=== PATIENT | male | born 1975 | race African-American/Black ===

== ENCOUNTER → 2016-08-09 | Outpatient (REF) | payer OTHER ==
[~2016-08-09] MED LIST: FLUO20CA9 PO; MUPI2OI TOP; TRAZ10TA PO
== END | disposition home or self-care (01) ==
LOC: M LAB REF 16:40
PROVIDERS: ATTEND Internal Medicine Medical Oncology
DX: I26.99 Other pulmonary embolism without acute cor pulmonale (principal)

== ENCOUNTER 2016-08-21 13:29 | Emergency (ER) | payer OTHER ==
[2016-08-21] MEDS ORDERED: ACETAMINOPHEN 325 MG TAB As Ordered ONE (14:27)
--- NOTE | 2016-08-21 15:51 | EDDOCDS ---
Nurse's Notes [facility] Name: John Ferrer Age: 41 yrs Sex: Male : 1975 Arrival Date: 08/21/2016 Time: 13:29 Bed PR2 / Private MD: RANDOLPH Dick Diagnosis: Acute upper respiratory infection, unspecified Presentation: 08/21 13:33 Presenting complaint: Patient states: body aches, chills, headache, sore throat, and kc3 cough x 2 days. Adult Sepsis Screening: The patient does not have new or worsening altered mentation. Patient's respiratory rate is less than 22. Systolic blood pressure is greater than 100. Patient has a qSOFA score of 0- Negative Sepsis Screen. Suicide/Homicide risk assessment- the patient denies having any suicidal and/or homicidal ideations and does not present with any other emotional, behavioral or mental health complaints. 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 Transition of care: patient was not received from another setting of care. 13:33 Acuity: SARAH Level 4 kc3 13:33 Method Of Arrival: Walkin/Carried/Asstd kc3 Triage Assessment: 13:36 General: Appears in no apparent distress, comfortable, Behavior is appropriate for age, kc3 cooperative. Pain: Location: head Pain currently is 10 out of 10 on a pain scale. HIV screening NA for this visit Offered previously. Respiratory: Respiratory effort is even, unlabored, Reports cough that is non-productive. Historical: - Allergies: no known allergies; - Home Meds: 1. Xarelto 20 mg oral tab once daily 2. Prozac 20 mg oral cap once daily 3. Wellbutrin 100 mg Oral tab daily - PMHx: DVT; Depression; - PSHx: none; - Social history: Smoking status: Patient states was never smoker of tobacco. No barriers to communication noted, The patient speaks fluent Panamanian, Speaks appropriately for age. - Family history: Not pertinent. - : The pt / caregiver states he / she is on anticoagulants: Xarelto Home medication list is obtained from the patient. - Exposure Risk Screening:: None identified. Screenin:29 Screening information is obtained from the patient. Fall risk: No risks identified. ms18 Assistance ADL's: requires no assistance with activities of daily living. Abuse/DV Screen: The patient / caregiver reports he/she is: not in a situation that causes fear, pain or injury. Nutritional screening: No deficits noted. Advance Directives: Currently, there is no health care proxy. home support is adequate. Assessment: 15:28 General: Appears in no apparent distress, Behavior is appropriate for age, cooperative. ms18 Pain: Location: head Pain currently is 7 out of 10 on a pain scale. Neurological: Level of Consciousness is awake, alert. Respiratory: Airway is patent Respiratory effort is even, unlabored, Breath sounds are clear bilaterally. Derm: No deficits noted. Vital Signs: 13:30 BP 167 / 96; Pulse 115; Resp 20; Temp 102.3(O); Pulse Ox 96% on R/A; Weight 113.4 kg lr2 (R); Height 6 ft. 4 in. (193.04 cm) (R); Pain 5/10; 15:28 BP 139 / 90; Pulse 108; Resp 16; Temp 99.2(TE); Pulse Ox 94% on R/A; ms18 13:30 Body Mass Index 30.43 (113.40 kg, 193.04 cm) lr2 Vitals: 13:30 Log In Time: August 21, 2016 at 13:29. lr2 ED Course: 13:30 Patient visited by Raysa Mcmillan. lr2 13:30 Patient moved to Waiting lr2 13:[address] [facility] is Private Physician. lr2 13:32 Patient moved to Pre RCE lr2 13:34 Triage Initiated kc3 13:37 Patient moved to Triage 3 kc3 13:49 [facility] dk1 13:49 Rohan Moran MD is Attending Physician. dk1 14:01 Patient visited by Manuel Pretty PA-C. dk1 14:24 Patient moved to PR2 / 26 mlb1 14:32 -Influenza A&B Rapid Antigen - Nose Sent. kc3 15:01 Patient visited by Lucrecia Stoddard RN. ms18 15:06 [facility] Payment Agreement was scanned into [employer] and attached to record. lg 15:29 The patient / caregiver is instructed regarding the plan of care and ED course. ms18 15:29 No IV's were initiated during this patient's visit. No procedures done that require ms18 assistance. 15:40 [place] Sanches [facility] is Referral Physician. dk1 15:50 Patient visited by Rahul Varma, RN. mlb1 Administered Medications: 14:32 Drug: Acetaminophen 975 mg [acetaminophen 325 mg tablet (3 tabs)] Route: PO; kc3 Order Results: Lab Order: -Influenza A&B Rapid Antigen - Nose; SPEC'M 08/21/16 14:30 Test: INFLUENZA A RAPID SCR by ICA; Value: INFLUENZA A RESULTS NEGATIVE; Status: F Test: INFLUENZA A RAPID SCR by ICA; Value: Comments:; Status: F Test: INFLUENZA B RAPID SCR by ICA; Value: INFLUENZA B RESULTS NEGATIVE; Status: F Test Note: ; The Influenza test is a direct rapid immunoassay for the qualitative detection of Influenza viral antigen. Cell culture (Viral Culture) testing should be considered to confirm NEGATIVE results and to assist in detecting other viruses that can provide similar clinical symptoms. Please contact the lab within 24 hours ([phone]) if confirmatory testing is desired. Outcome: 15:40 Discharge ordered by Provider. dk1 15:50 Discharge Assessment: Patient awake, alert and oriented x 3. No cognitive and/or mlb1 functional deficits noted. Patient verbalized understanding of disposition instructions. patient administered narcotics - no. The following High Risk Discharge criteria are identified: None. Discharged to home ambulatory. Condition: good. Discharge instructions given to patient, Instructed on discharge instructions, follow up and referral plans. medication usage, Demonstrated understanding of instructions, medications, Pt was receptive of discharge instructions/ teaching. Prescriptions given X 3. No special radiology studies were completed. Property sent home with patient. 15:50 Patient left the ED. mlb1 Signatures: Kam Norris Reg Reg lg Rahul Varma, RN RN mlb1 Manuel Pretty PA-C PA-C dk1 Lucrecia Stoddard RN RN ms18 Donna Taveras,SHIRLENE RN kc3 Raysa Mcmillan2 MTDD
--- NOTE | 2016-08-21 15:51 | EDDOCDS ---
Physician Documentation [facility] Name: John Ferrer Age: 41 yrs Sex: Male : 1975 Arrival Date: 08/21/2016 Time: 13:29 Bed PR Private MD: Kapil [facility] Disposition: 08/21/16 15:40 Discharged to Home/Self Care. Impression: Acute upper respiratory infection, unspecified. - Condition is Stable. - Discharge Instructions: Upper Respiratory Infection, Adult. - Prescriptions for Tylenol 325 mg Oral Tablet - take 2 tablet by ORAL route every 6 hours as needed; 1 bottle. Mucinex 600 mg - take 1 tablet by ORAL route 2 times per day; 30 tablet. benzonatate 200 mg Oral Capsule - take 1 capsule by ORAL route 3 times per day As needed; 30 capsule. - Medication Reconciliation, Local Pharmacy Hours form. - Follow up: Dayton Sanches [facility]; When: 2 - 3 days; Reason: Continuance of care. Follow up: Emergency Department; When: As needed; Reason: Worsening of conditions. - Problem is new. - Symptoms have improved. Historical: - Allergies: no known allergies; - Home Meds: 1. Xarelto 20 mg oral tab once daily 2. Prozac 20 mg oral cap once daily 3. Wellbutrin 100 mg Oral tab daily - PMHx: DVT; Depression; - PSHx: none; - Social history: Smoking status: Patient states was never smoker of tobacco. No barriers to communication noted, The patient speaks fluent Setswana, Speaks appropriately for age. - Family history: Not pertinent. - : The pt / caregiver states he / she is on anticoagulants: Xarelto Home medication list is obtained from the patient. - Exposure Risk Screening:: None identified. Vital Signs: 08/21 13:30 BP 167 / 96; Pulse 115; Resp 20; Temp 102.3(O); Pulse Ox 96% on R/A; Weight 113.4 kg / lr2 250 lbs (R); Height 6 ft. 4 in. (193.04 cm) (R); Pain 5/10; 15:28 BP 139 / 90; Pulse 108; Resp 16; Temp 99.2(TE); Pulse Ox 94% on R/A; ms18 13:30 Body Mass Index 30.43 (113.40 kg, 193.04 cm) lr2 MDM: 14:09 Financial registration complete. lg 14:22 Acetaminophen Tablet 975 mg PO once ordered. dk1 14:22 Obtain sample by nasopharyngeal swab ordered. dk1 14:23 -Influenza A&B Rapid Antigen - Nose Ordered. EDMS 15:06 [facility] Payment Agreement was scanned into [employer]u and attached to record. lg 15:14 -Influenza A&B Rapid Antigen - Nose Reviewed. dk1 15:17 Recheck Vital Signs, perform reassessment and enter into MedHost ordered. dk1 Administered Medications: 14:32 Drug: Acetaminophen 975 mg [acetaminophen 325 mg tablet (3 tabs)] Route: PO; kc3 Signatures: Dispatcher MedHost EDMS Kam Norris, Armond Reg lg Rahul Varma RN RN mlb1 Manuel Pretty, PA-C PA-C dk1 Lucrecia Stoddard RN RN ms18 Donna TaverasRN RN kc3 The chart was reviewed and I authenticate all verbal orders and agree with the evaluation and treatment provided.Attachments: 15:06 [facility] Payment Agreement lg MTDD
--- NOTE | 2016-08-23 16:52 | EDDOCDS ---
Physician Documentation [facility] Name: John Ferrer Age: 41 yrs Sex: Male : 1975 Arrival Date: 08/21/2016 Time: 13:29 Bed PR Private MD: Kapil [facility] Disposition: 08/21/16 15:40 Discharged to Home/Self Care. Impression: Acute upper respiratory infection, unspecified. - Condition is Stable. - Discharge Instructions: Upper Respiratory Infection, Adult. - Prescriptions for Tylenol 325 mg Oral Tablet - take 2 tablet by ORAL route every 6 hours as needed; 1 bottle. Mucinex 600 mg - take 1 tablet by ORAL route 2 times per day; 30 tablet. benzonatate 200 mg Oral Capsule - take 1 capsule by ORAL route 3 times per day As needed; 30 capsule. - Medication Reconciliation, Local Pharmacy Hours form. - Follow up: [place] Sanches [facility]; When: 2 - 3 days; Reason: Continuance of care. Follow up: Emergency Department; When: As needed; Reason: Worsening of conditions. - Problem is new. - Symptoms have improved. Historical: - Allergies: no known allergies; - Home Meds: 1. Xarelto 20 mg oral tab once daily 2. Prozac 20 mg oral cap once daily 3. Wellbutrin 100 mg Oral tab daily - PMHx: DVT; Depression; - PSHx: none; - Social history: Smoking status: Patient states was never smoker of tobacco. No barriers to communication noted, The patient speaks fluent Belarusian, Speaks appropriately for age. - Family history: Not pertinent. - : The pt / caregiver states he / she is on anticoagulants: Xarelto Home medication list is obtained from the patient. - Exposure Risk Screening:: None identified. Vital Signs: 08/21 13:30 BP 167 / 96; Pulse 115; Resp 20; Temp 102.3(O); Pulse Ox 96% on R/A; Weight 113.4 kg / lr2 250 lbs (R); Height 6 ft. 4 in. (193.04 cm) (R); Pain 5/10; 15:28 BP 139 / 90; Pulse 108; Resp 16; Temp 99.2(TE); Pulse Ox 94% on R/A; ms18 13:30 Body Mass Index 30.43 (113.40 kg, 193.04 cm) lr2 MDM: 14:09 Financial registration complete. lg 14:22 Acetaminophen Tablet 975 mg PO once ordered. dk1 14:22 Obtain sample by nasopharyngeal swab ordered. dk1 14:23 -Influenza A&B Rapid Antigen - Nose Ordered. EDTN 15:06 [facility] Payment Agreement was scanned into [employer] and attached to record. lg 15:14 -Influenza A&B Rapid Antigen - Nose Reviewed. dk1 15:17 Recheck Vital Signs, perform reassessment and enter into MedHost ordered. dk1 08/22 08:54 T-Sheet-- Draft Copy was scanned into [employer] and attached to record. [facility] Administered Medications: 08/21 14:32 Drug: Acetaminophen 975 mg [acetaminophen 325 mg tablet (3 tabs)] Route: PO; kc3 Signatures: Dispatcher MedHost EDTN Kam Norris, Armond Reg lg Rahul Varma RN RN mlb1 aMnuel Pretty PA-C PAHanh dk1 Lucrecia Stoddard RN RN ms18 Donna Taveras RN RN kc3 Lorin Cosby [facility] The chart was reviewed and I authenticate all verbal orders and agree with the evaluation and treatment provided.Attachments: 15:06 [facility] Payment Agreement lg 08/22 08:54 T-Sheet-- Draft Copy [facility] Chart Complete MTDD
--- NOTE | 2016-08-23 16:52 | EDDOCDS ---
Nurse's Notes [facility] Name: John Ferrer Age: 41 yrs Sex: Male : 1975 Arrival Date: 08/21/2016 Time: 13:29 Bed PR2 / Private MD: RANDOLPH Dick Diagnosis: Acute upper respiratory infection, unspecified Presentation: 08/21 13:33 Presenting complaint: Patient states: body aches, chills, headache, sore throat, and kc3 cough x 2 days. Adult Sepsis Screening: The patient does not have new or worsening altered mentation. Patient's respiratory rate is less than 22. Systolic blood pressure is greater than 100. Patient has a qSOFA score of 0- Negative Sepsis Screen. Suicide/Homicide risk assessment- the patient denies having any suicidal and/or homicidal ideations and does not present with any other emotional, behavioral or mental health complaints. 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 Transition of care: patient was not received from another setting of care. 13:33 Acuity: SARAH Level 4 kc3 13:33 Method Of Arrival: Walkin/Carried/Asstd kc3 Triage Assessment: 13:36 General: Appears in no apparent distress, comfortable, Behavior is appropriate for age, kc3 cooperative. Pain: Location: head Pain currently is 10 out of 10 on a pain scale. HIV screening NA for this visit Offered previously. Respiratory: Respiratory effort is even, unlabored, Reports cough that is non-productive. Historical: - Allergies: no known allergies; - Home Meds: 1. Xarelto 20 mg oral tab once daily 2. Prozac 20 mg oral cap once daily 3. Wellbutrin 100 mg Oral tab daily - PMHx: DVT; Depression; - PSHx: none; - Social history: Smoking status: Patient states was never smoker of tobacco. No barriers to communication noted, The patient speaks fluent Guyanese, Speaks appropriately for age. - Family history: Not pertinent. - : The pt / caregiver states he / she is on anticoagulants: Xarelto Home medication list is obtained from the patient. - Exposure Risk Screening:: None identified. Screenin:29 Screening information is obtained from the patient. Fall risk: No risks identified. ms18 Assistance ADL's: requires no assistance with activities of daily living. Abuse/DV Screen: The patient / caregiver reports he/she is: not in a situation that causes fear, pain or injury. Nutritional screening: No deficits noted. Advance Directives: Currently, there is no health care proxy. home support is adequate. Assessment: 15:28 General: Appears in no apparent distress, Behavior is appropriate for age, cooperative. ms18 Pain: Location: head Pain currently is 7 out of 10 on a pain scale. Neurological: Level of Consciousness is awake, alert. Respiratory: Airway is patent Respiratory effort is even, unlabored, Breath sounds are clear bilaterally. Derm: No deficits noted. Vital Signs: 13:30 BP 167 / 96; Pulse 115; Resp 20; Temp 102.3(O); Pulse Ox 96% on R/A; Weight 113.4 kg lr2 (R); Height 6 ft. 4 in. (193.04 cm) (R); Pain 5/10; 15:28 BP 139 / 90; Pulse 108; Resp 16; Temp 99.2(TE); Pulse Ox 94% on R/A; ms18 13:30 Body Mass Index 30.43 (113.40 kg, 193.04 cm) lr2 Vitals: 13:30 Log In Time: August 21, 2016 at 13:29. lr2 ED Course: 13:30 Patient visited by Raysa Mcmillan. lr2 13:30 Patient moved to Waiting lr2 13:32 Kapil [facility] [place] [place] is Private Physician. lr2 13:32 Patient moved to Pre RCE lr2 13:34 Triage Initiated kc3 13:37 Patient moved to Triage 3 kc3 13:49 [facility]. dk1 13:49 Rohan Moran MD is Attending Physician. dk1 14:01 Patient visited by Manuel Pretty PA-C. dk1 14:24 Patient moved to PR2 / 26 mlb1 14:32 -Influenza A&B Rapid Antigen - Nose Sent. kc3 15:01 Patient visited by Lucrecia Stoddard RN. ms18 15:06 [facility] Payment Agreement was scanned into [employer] and attached to record. lg 15:29 The patient / caregiver is instructed regarding the plan of care and ED course. ms18 15:29 No IV's were initiated during this patient's visit. No procedures done that require ms18 assistance. 15:40 [place] Sanches [facility] is Referral Physician. dk1 15:50 Patient visited by Rahul Varma, RN. mlb1 08/22 08:54 T-Sheet-- Draft Copy was scanned into [employer] and attached to record. [facility] Administered Medications: 08/21 14:32 Drug: Acetaminophen 975 mg [acetaminophen 325 mg tablet (3 tabs)] Route: PO; kc3 Order Results: Lab Order: -Influenza A&B Rapid Antigen - Nose; SPEC'M 08/21/16 14:30 Test: INFLUENZA A RAPID SCR by ICA; Value: INFLUENZA A RESULTS NEGATIVE; Status: F Test: INFLUENZA A RAPID SCR by ICA; Value: Comments:; Status: F Test: INFLUENZA B RAPID SCR by ICA; Value: INFLUENZA B RESULTS NEGATIVE; Status: F Test Note: ; The Influenza test is a direct rapid immunoassay for the qualitative detection of Influenza viral antigen. Cell culture (Viral Culture) testing should be considered to confirm NEGATIVE results and to assist in detecting other viruses that can provide similar clinical symptoms. Please contact the lab within 24 hours ([phone]) if confirmatory testing is desired. Outcome: 15:40 Discharge ordered by Provider. dk1 15:50 Discharge Assessment: Patient awake, alert and oriented x 3. No cognitive and/or mlb1 functional deficits noted. Patient verbalized understanding of disposition instructions. patient administered narcotics - no. The following High Risk Discharge criteria are identified: None. Discharged to home ambulatory. Condition: good. Discharge instructions given to patient, Instructed on discharge instructions, follow up and referral plans. medication usage, Demonstrated understanding of instructions, medications, Pt was receptive of discharge instructions/ teaching. Prescriptions given X 3. No special radiology studies were completed. Property sent home with patient. 15:50 Patient left the ED. mlb1 Signatures: Kam Norris, Armond Reg lg Rahul Varma, RN RN mlb1 Manuel Pretty PA-C PAHanh dk1 Lucrecia Stoddard RN RN ms18 Donna Taveras RN RN kc3 Harjeet, Raysa Landry Chart Complete MTDD
--- NOTE | 2016-08-23 16:52 | EDDOCDS ---
Physician Documentation [facility] Name: John Ferrer Age: 41 yrs Sex: Male : 1975 Arrival Date: 08/21/2016 Time: 13:29 Bed PR Private MD: Kapil [facility] Disposition: 08/21/16 15:40 Discharged to Home/Self Care. Impression: Acute upper respiratory infection, unspecified. - Condition is Stable. - Discharge Instructions: Upper Respiratory Infection, Adult. - Prescriptions for Tylenol 325 mg Oral Tablet - take 2 tablet by ORAL route every 6 hours as needed; 1 bottle. Mucinex 600 mg - take 1 tablet by ORAL route 2 times per day; 30 tablet. benzonatate 200 mg Oral Capsule - take 1 capsule by ORAL route 3 times per day As needed; 30 capsule. - Medication Reconciliation, Local Pharmacy Hours form. - Follow up: [place] Sanches [facility]; When: 2 - 3 days; Reason: Continuance of care. Follow up: Emergency Department; When: As needed; Reason: Worsening of conditions. - Problem is new. - Symptoms have improved. Historical: - Allergies: no known allergies; - Home Meds: 1. Xarelto 20 mg oral tab once daily 2. Prozac 20 mg oral cap once daily 3. Wellbutrin 100 mg Oral tab daily - PMHx: DVT; Depression; - PSHx: none; - Social history: Smoking status: Patient states was never smoker of tobacco. No barriers to communication noted, The patient speaks fluent Kazakh, Speaks appropriately for age. - Family history: Not pertinent. - : The pt / caregiver states he / she is on anticoagulants: Xarelto Home medication list is obtained from the patient. - Exposure Risk Screening:: None identified. Vital Signs: 08/21 13:30 BP 167 / 96; Pulse 115; Resp 20; Temp 102.3(O); Pulse Ox 96% on R/A; Weight 113.4 kg / lr2 250 lbs (R); Height 6 ft. 4 in. (193.04 cm) (R); Pain 5/10; 15:28 BP 139 / 90; Pulse 108; Resp 16; Temp 99.2(TE); Pulse Ox 94% on R/A; ms18 13:30 Body Mass Index 30.43 (113.40 kg, 193.04 cm) lr2 MDM: 14:09 Financial registration complete. lg 14:22 Acetaminophen Tablet 975 mg PO once ordered. dk1 14:22 Obtain sample by nasopharyngeal swab ordered. dk1 14:23 -Influenza A&B Rapid Antigen - Nose Ordered. EDID 15:06 [facility] Payment Agreement was scanned into [employer] and attached to record. lg 15:14 -Influenza A&B Rapid Antigen - Nose Reviewed. dk1 15:17 Recheck Vital Signs, perform reassessment and enter into MedHost ordered. dk1 08/22 08:54 T-Sheet-- Draft Copy was scanned into [employer] and attached to record. [facility] Administered Medications: 08/21 14:32 Drug: Acetaminophen 975 mg [acetaminophen 325 mg tablet (3 tabs)] Route: PO; kc3 Signatures: Dispatcher MedHost EDID Kam Norris, Armond Reg lg Rahul Varma RN RN mlb1 Manuel Pretty PA-C PAHanh dk1 Lucrecia Stoddard RN RN ms18 Donna Taveras RN RN kc3 Lorin Cosby [facility] The chart was reviewed and I authenticate all verbal orders and agree with the evaluation and treatment provided.Attachments: 15:06 [facility] Payment Agreement lg 08/22 08:54 T-Sheet-- Draft Copy [facility] Chart Complete MTDD
== END 2016-08-21 15:50 | disposition home or self-care (01) ==
LOC: M ED 13:29
DX: J06.9 Acute upper respiratory infection, unspecified (principal); I82.90 Acute embolism and thrombosis of unspecified vein; F32.9 Major depressive disorder, single episode, unspecified; Z79.01 Long term (current) use of anticoagulants; Z79.899 Other long term (current) drug therapy

== ENCOUNTER → 2016-09-21 | Outpatient (CLI) | payer OTHER ==
--- NOTE | 2016-09-21 07:53 | REP ---
Clinical: Follow-up for acute embolism. Comparison: 05/31/2016. Technique: Conley scale and color Doppler evaluation using linear high frequency transducer. Findings: Ultrasound examination of the left lower extremity deep venous structures from the common femoral vein to the popliteal vein demonstrates normal compressibility flow and wave patterns in response to respiration and augmentation. There is no evidence for deep venous thrombosis. Impression: No evidence for deep venous thrombosis. Signed by Jaime Saldaña MD 09/21/2016 07:44 A
== END ==
LOC: M RAD 07:01
PROVIDERS: ATTEND Internal Medicine Medical Oncology
DX: I82.402 Acute embolism and thrombosis of unspecified deep veins of left lower extremity (principal)

== ENCOUNTER 2016-11-12 14:56 | Emergency (ER) | payer OTHER ==
[~2016-11-12] VITALS: Ht 193 cm; Wt 127.0 kg
[2016-11-12] MEDS ORDERED: ACYC1CAP8 PO (15:18)
[2016-11-12] MEDS ORDERED: MICOPOW31 TOP (15:43)
[2016-11-12 15:56] VITALS: BP 140/98
[2016-11-12] MEDS ORDERED: VALT1TAB PO (16:02)
== END 2016-11-12 16:07 | disposition home or self-care (01) ==
LOC: M ED 15:52
DX: L72.9 Follicular cyst of the skin and subcutaneous tissue, unspecified (principal); B35.6 Tinea cruris; I10 Essential (primary) hypertension; G47.33 Obstructive sleep apnea (adult) (pediatric); Z86.718 Personal history of other venous thrombosis and embolism

== ENCOUNTER 2016-12-24 14:10 | Emergency (ER) | payer OTHER ==
[~2016-12-24] VITALS: Ht 193 cm; Wt 129.4 kg
[~2016-12-24 14:10] MED LIST changes: +ACYC200C8 PO; +FLUO20CA19 PO; -FLUO20CA9 PO; +MICOPOW31 TOP; +VALT1TAB PO
[2016-12-24] MEDS ORDERED: XARE15TA PO (14:23)
--- NOTE | 2016-12-24 15:47 | REP ---
Clinical: Bilateral lower extremity pain . Technique: Conley scale and color Doppler evaluation using linear high frequency transducer. Findings: Ultrasound examination of the right and left lower extremity deep venous structures from the common femoral vein to the popliteal vein demonstrates normal compressibility flow and wave patterns in response to respiration and augmentation. There is no evidence for deep venous thrombosis. Impression: No evidence for deep venous thrombosis. Signed by Jaime Saldaña MD 12/24/2016 03:38 P
[2016-12-24 16:30] VITALS: BP 141/96
== END 2016-12-24 16:32 | disposition home or self-care (01) ==
LOC: M ED 14:10
DX: I73.9 Peripheral vascular disease, unspecified (principal); R60.0 Localized edema; I10 Essential (primary) hypertension

== ENCOUNTER 2017-01-05 15:21 | Emergency (ER) | payer OTHER ==
[~2017-01-05] VITALS: Ht 193 cm; Wt 126.8 kg
[~2017-01-05 15:21] MED LIST changes: +XARE15TA PO
[2017-01-05 16:17] LABS: BASO # 0.1 K/mm3 (0.0-0.2); BASO % 1.5 % (0.0-1.0); EOS # 0.2 K/mm3 (0.0-0.50); LARGE UNSTAINED CELL # 0.1 K/mm3 (0.0-0.4); LARGE UNSTAINED CELL % 1.3 % (0.0-4.0); LYMPH # 1.9 K/mm3 (1.5-4.5); LYMPH % 34.2 % (24.0-44.0); MEAN CORPUSCULAR HEMOGLOBIN 31.2 pg (27.0-33.0); MEAN CORPUSCULAR HGB CONC 35.5 g/dl (32.0-36.5); MEAN CORPUSCULAR VOLUME 87.8 fl (80.0-96.0); MONO # 0.4 K/mm3 (0.0-0.8); MONO % 7.9 % (0.0-5.0); NEUTROPHILS # 2.8 K/mm3 (1.8-7.7); NEUTROPHILS % 52.2 % (36.0-66.0); PLATELET COUNT, AUTOMATED 243 k/mm3 (150-450); RED CELL DISTRIBUTION WIDTH 14.1 % (11.5-14.5); WHITE BLOOD COUNT 5.4 K/mm3 (4.0-10.0)
[2017-01-05 16:44] LABS: ANION GAP 7 MEQ/L (8-16); BLOOD UREA NITROGEN 14 MG/DL (7-18); CALCIUM LEVEL 9.4 MG/DL (8.5-10.1); CARBON DIOXIDE LEVEL 25 MEQ/L (21-32); CHLORIDE LEVEL 106 MEQ/L (98-107); CREATININE FOR GFR 1.28 MG/DL (0.70-1.30); GLOMERULAR FILTRATION RATE > 60.0 (>60); GLUCOSE, FASTING 116 MG/DL (70-105); POTASSIUM SERUM 4.1 MEQ/L (3.5-5.1); SODIUM LEVEL 138 MEQ/L (136-145)
[2017-01-05] MEDS ORDERED: ISOVUE-370 76% 100ML VIAL (Q9967) As Ordered ONE (16:51)
--- NOTE | 2017-01-05 17:52 | REP ---
CT study of the pelvis with IV but without oral contrast: History: Pain in the left gluteal region. CT contrast dose: 100 ml of intravenous Isovue [address] findings: Digital trading analyst radiograph show an unremarkable bowel gas pattern in the pelvis. No pelvic or lower abdominal mass lesion is seen. No inguinal, obturator or iliac adenopathy is seen. No vascular abnormality is noted. Urinary bladder is unremarkable. Prostate and seminal vesicles are normal in appearance. No peroneal abnormality is seen. The extra pelvic skeletal musculature is normal and symmetric. No abdominal wall defect is seen. No bony destructive lesion is seen. There is some sclerosis at the superior margin of the SI joints bilaterally. Impression: Unremarkable CT study of the pelvis with IV contrast. No significant abnormality. Signed by Addison Champion MD 01/05/2017 06:21 P
[2017-01-05] MEDS ORDERED: PRED20TA PO (17:54)
[2017-01-05 17:59] VITALS: BP 130/72
== END 2017-01-05 18:00 | disposition home or self-care (01) ==
LOC: M ED 15:21
DX: M54.32 Sciatica, left side (principal)
CPT/HCPCS: 72193; 80048; 81001; 82550; 85025; 99283; Q9967

== ENCOUNTER 2017-01-12 15:42 | Emergency (ER) | payer OTHER ==
[~2017-01-12] VITALS: Ht 193 cm; Wt 112.7 kg
[2017-01-12 15:42] VITALS: BP 145/89
[~2017-01-12 15:42] MED LIST changes: +PRED20TA PO
[2017-01-12] MEDS ORDERED: GRX1OIN (15:48)
[2017-01-12] MEDS ORDERED: FLUO20CA19 (15:48)
[2017-01-12] MEDS ORDERED: ZOLP5TAB (15:48)
[2017-01-12] MEDS ORDERED: VIAG100T (15:48)
[2017-01-12] MEDS ORDERED: VALA1TAB2 (15:48)
[2017-01-12] MEDS ORDERED: LISI-538 (15:48)
[2017-01-12] MEDS ORDERED: ULTR50TA8 PO (17:26)
[2017-01-12] MEDS ORDERED: ROBA500T PO (17:26)
--- NOTE | 2017-01-12 18:05 | REP ---
LUMBAR SPINE, FIVE VIEWS: HISTORY: Back pain. There is no acute fracture or subluxation. The intervertebral discs are normal in height. The fact joints are normal in appearance. IMPRESSION:There is no acute fracture or subluxation. Signed by Roberto Carlos Vega MD 01/13/2017 08:17 A
== END 2017-01-12 18:07 | disposition home or self-care (01) ==
LOC: M ED 15:42
DX: M54.32 Sciatica, left side (principal); G89.29 Other chronic pain; Z79.899 Other long term (current) drug therapy

== ENCOUNTER 2017-01-17 16:53 | Emergency (ER) | payer OTHER ==
[~2017-01-17] VITALS: Ht 193 cm; Wt 122.7 kg
[~2017-01-17 16:53] MED LIST changes: +FLUO20CA19; +GRX1OIN; +LISI-538; +ROBA500T PO; +ULTR50TA8 PO; +VALA1TAB2; +VIAG100T; +ZOLP5TAB
[2017-01-17] MEDS ORDERED: PERC5TAB12 PO (20:02)
[2017-01-17] MEDS ORDERED: INDO25CA PO (20:02)
[2017-01-17 20:20] VITALS: BP 150/92
== END 2017-01-17 20:22 | disposition home or self-care (01) ==
LOC: M ED 16:53
DX: M54.32 Sciatica, left side (principal); Z79.899 Other long term (current) drug therapy

== ENCOUNTER 2017-02-03 07:05 | Emergency (ER) | payer OTHER ==
[~2017-02-03] VITALS: Ht 193 cm; Wt 126.4 kg
[~2017-02-03 07:05] MED LIST changes: +INDO25CA PO; +PERC5TAB12 PO
[2017-02-03] MEDS ORDERED: methylPREDNISolone INJ 125 MG/2 ML VIAL (J2930) IM ONE (07:45)
[2017-02-03] MEDS ORDERED: GABAPENTIN 300 MG CAP PO ONE (07:45)
[2017-02-03] MEDS ORDERED: PRED20TA PO (09:02)
[2017-02-03] MEDS ORDERED: GABA-282 PO (09:02)
[2017-02-03 09:14] VITALS: BP 159/103
--- NOTE | 2017-02-03 10:22 | REP ---
MRI LUMBAR SPINE WITHOUT CONTRAST: HISTORY: Back pain. Decreased signal intensity on T2-weighted images is present in the L5-S1 intervertebral disc. The disc is decreased in height. These findings are consistent with disc degeneration. There is no disc bulge or herniation at the L1-2 and L2-3 levels. The nerves exit the neural foramina without compression. A diffuse disc bulge is present at the L3-4 level. There is minimal compression of the thecal sac. There is hypertrophy of the posterior articulating facets. The L3 nerves exit the neural foramina without compression. A diffuse disc bulge is present at the L4-5 level. There is minimal compression of the thecal sac. There is hypertrophy of the posterior articulating facets. The L4 nerves exit the neural foramina without compression. A diffuse disc bulge and small central disc protrusion are present at the L5-S1 level. There is minimal compression of the thecal sac. The L5 nerves exit the neural foramina without compression. The conus medullaris is normal in appearance terminating at the level of the T12-L1 intervertebral disc. Increased signal intensity on T2-weighted images is present in the end plates of the L5 and S1 vertebral bodies. This represents degenerative change. IMPRESSION: 1. Diffuse disc bulges at the L3-4 and L4-5 levels with minimal thecal sac compression. 2. Diffuse disc bulge and small central disc protrusion at the L5-S1 level with minimal thecal sac compression. Signed by Roberto Carlos Vega MD 02/03/2017 10:26 A
== END 2017-02-03 09:16 | disposition home or self-care (01) ==
LOC: M ED 07:05
DX: M51.27 Other intervertebral disc displacement, lumbosacral region (principal); M54.32 Sciatica, left side; I10 Essential (primary) hypertension; E78.4 Other hyperlipidemia
CPT/HCPCS: 72148; 96372; 99282; J2930

== ENCOUNTER → 2017-02-07 | Outpatient (CLI) | payer OTHER ==
[~2017-02-07] MED LIST changes: +GABA-282 PO
--- NOTE | 2017-02-07 21:02 | ECHO ---
DATE OF PROCEDURE: 02/07/2017 REFERRING PHYSICIAN: Manuel Barroso MD INDICATION: Hypertension and pulmonary emboli. PATIENT LOCATION: Outpatient HEIGHT: 193 cm WEIGHT: 126 kg DIMENSIONS: IVS: 1.1 LV: 4.6 LVPW: 1.1 LA: 3.5 Aorta: 3.5 FINDINGS: The study is of acceptable technical quality corresponding to patient's body habitus. Left ventricle is of normal size and systolic function with estimated ejection fraction (EF) around 65%. I do not appreciate segmental wall motion abnormalities. Right ventricle is not dilated. Both atria appear normal. All four cardiac valves were reasonably well seen and appear normal. No pericardial effusion is noted. Inferior vena cava was not well seen. Aortic root and aortic arch appear normal. Abdominal aorta was not well visualized. Doppler interrogation of aortic valve reveals no stenosis or insufficiency. There is no significant mitral or tricuspid stenosis or insufficiency. Pulmonic valve is also functionally competent. Evaluation of diastolic function is somewhat inconclusive. There is normal inflow pattern on mitral inflow, but that tissue Doppler velocities of mitral annulus are reduced (E prime velocity is 6.1 and 8.0 cm/s in septal and lateral mitral annulus respectively). I still believe that this most likely represents normal diastolic function as the size of the left atrium appears normal. CONCLUSION 1. Study is of acceptable technical quality considering patient's body habitus. 2. Normal left ventricle (LV) size and systolic function and probably normal diastolic function. 3. No significant valvular disease. 4. Right ventricle (RV) is not dilated. 5. Unable to estimate central venous pressure. 6. Unable to estimate pulmonary artery pressure, but no signs to suggest pulmonary hypertension. COMMENT: Subacute bacterial endocarditis (SBE) prophylaxis is not recommended.
== END ==
LOC: M CARPUL 10:44
PROVIDERS: ATTEND Internal Medicine
DX: I10 Essential (primary) hypertension (principal); E11.9 Type 2 diabetes mellitus without complications

== ENCOUNTER 2017-04-25 09:15 | Emergency (ER) | payer OTHER ==
[~2017-04-25] VITALS: Ht 193 cm; Wt 129.3 kg
[2017-04-25 10:37] VITALS: BP 135/98
== END 2017-04-25 10:38 | disposition home or self-care (01) ==
LOC: M ED 09:15
DX: M51.17 Intervertebral disc disorders with radiculopathy, lumbosacral region (principal); R03.0 Elevated blood-pressure reading, without diagnosis of hypertension

== ENCOUNTER 2017-05-13 23:09 | Emergency (ER) | payer OTHER ==
[~2017-05-13] VITALS: Ht 190.5 cm; Wt 127.3 kg
[2017-05-13] MEDS ORDERED: [UNRECOGNIZED DRUG - CODE] (23:23)
[2017-05-13] MEDS ORDERED: VIAG100T (23:23)
[2017-05-14 01:44] VITALS: BP 149/92
[2017-05-14] MEDS ORDERED: MEDR4PAK PO (02:15)
[2017-05-14] MEDS ORDERED: OXYCODONE/APAP 5MG/325MG(BULK FOR ED) 1 TABLET PO ONE (02:15)
== END 2017-05-14 02:31 | disposition home or self-care (01) ==
LOC: M ED 23:09
DX: M51.17 Intervertebral disc disorders with radiculopathy, lumbosacral region (principal); G47.30 Sleep apnea, unspecified; Z98.890 Other specified postprocedural states; Z86.711 Personal history of pulmonary embolism

== ENCOUNTER 2017-05-18 21:21 | Emergency (ER) | payer OTHER ==
[~2017-05-18] VITALS: Ht 193 cm; Wt 127.3 kg
[~2017-05-18 21:21] MED LIST changes: +MEDR4PAK PO; +[UNRECOGNIZED DRUG - CODE]
[2017-05-18 21:22] VITALS: BP 161/100
[2017-05-18] MEDS ORDERED: VALT1TAB PO (22:38)
[2017-05-18] MEDS ORDERED: valACYclovir HCL 500 MG TAB PO ONE (22:45)
== END 2017-05-18 22:51 | disposition home or self-care (01) ==
LOC: M ED 21:21
DX: A60.01 Herpesviral infection of penis (principal); I10 Essential (primary) hypertension; G47.33 Obstructive sleep apnea (adult) (pediatric); N52.9 Male erectile dysfunction, unspecified; Z79.899 Other long term (current) drug therapy

== ENCOUNTER 2017-07-18 09:39 | Emergency (ER) | payer OTHER ==
[2017-07-18] MEDS: ALBUTEROL SULFATE 2.5 MG/0.5 ML INH NEB SOLN INH (13:37)
== END 2017-07-18 15:09 | disposition home or self-care (01) ==
LOC: M ED 09:39
DX: J20.8 Acute bronchitis due to other specified organisms (principal)
CPT/HCPCS: 71046

== ENCOUNTER 2017-07-29 23:41 | Emergency (ER) | payer OTHER ==
[2017-07-30] MEDS ORDERED: LIDOCAINE 1% MDV 20ML VIAL As Ordered (02:12)
[2017-07-30] MEDS: LIDOCAINE 1% MDV 20ML VIAL SC (02:15)
[2017-07-30] MEDS: ADACEL/BOOSTRIX VACCINE (DIPHTH/PERTUSS/ACELL/TETANUS)0.5ML SYR (90715) IM (02:32)
== END 2017-07-30 02:40 | disposition home or self-care (01) ==
LOC: M ED 23:41
DX: S51.012A Laceration without foreign body of left elbow, initial encounter (principal); W25.XXXA Contact with sharp glass, initial encounter; Y92.018 Other place in single-family (private) house as the place of occurrence of the external cause; M54.9 Dorsalgia, unspecified; Z79.899 Other long term (current) drug therapy
CPT/HCPCS: 90715

== ENCOUNTER 2018-09-25 12:52 | Day surgery (SDC) | payer OTHER ==
[~2018-09-25] VITALS: Ht 193 cm; Wt 136.1 kg
[~2018-09-25 12:52] MED LIST changes: +BENZ200C70 PO; -GABA-282 PO; +GABA-843 PO; +MUCI600T37 PO; +VENTAER IN; +[UNRECOGNIZED DRUG - OTHER] PO
[2018-09-25] MEDS ORDERED: PROPOFOL 200 MG/20 ML VIAL ONE ×2 (12:53)
[2018-09-25] MEDS ORDERED: LIDOCAINE 2% INJ 100 MG/5 ML SDV (FOR ANES.) ONE (12:53)
--- NOTE | 2018-09-25 15:06 | ROOR ---
Patient Name: John Ferrer Procedure Date: 09/25/2018 2:52 PM Date of : 1975 Age: 43 Room: [facility] Gender: Male Note Status: Finalized Procedure: Total Colonoscopy to Cecum Indications: Lower abdominal pain, Rectal bleeding, Change in bowel habits Providers: Buddy Castelan MD Referring MD: Karla [facility], Admin. Requesting Provider: Medicines: Monitored Anesthesia Care Complications: No immediate complications. Procedure: Pre-Anesthesia Assessment: - The heart rate, respiratory rate, oxygen saturations, blood pressure, adequacy of pulmonary ventilation, and response to care were monitored throughout the procedure. The Colonoscope was introduced through the anus and advanced to the cecum, identified by appendiceal orifice and ileocecal valve. The colonoscopy was performed without difficulty. The patient tolerated the procedure well. The quality of the bowel preparation was excellent. Findings: The perianal and digital rectal examinations were normal. Non-bleeding internal hemorrhoids were found during retroflexion. The hemorrhoids were small and Grade I (internal hemorrhoids that do not prolapse). No other significant abnormalities were identified in a careful examination of the remainder of the colon. The exam was otherwise without abnormality on direct and retroflexion views. Impression: - Non-bleeding internal hemorrhoids. - The examination was otherwise normal on direct and retroflexion views. - No specimens collected. - The exam was otherwise normal to the cecum. Recommendation: - Patient has a contact number available for emergencies. The signs and symptoms of potential delayed complications were discussed with the patient. Return to normal activities tomorrow. Written discharge instructions were provided to the patient. - High fiber diet. - Discharge patient to home. - Continue present medications. - Repeat colonoscopy in 10 years for screening purposes. - Return to referring physician. - The findings and recommendations were discussed with the patient's family. Buddy Castelan MD Buddy Castelan MD 09/25/2018 3:06:05 PM Electronically signed by Buddy Castelan MD Number of Addenda: 0 Note Initiated On: 09/25/2018 2:52 PM Estimated Blood Loss: Estimated blood loss: none.
[2018-09-25 15:25] VITALS: BP 160/100
== END 2018-09-25 15:08 | disposition home or self-care (01) ==
LOC: M OPP 12:52
PROVIDERS: ATTEND Internal Medicine Gastroenterology
DX: R10.30 Lower abdominal pain, unspecified (principal); K62.5 Hemorrhage of anus and rectum; R19.4 Change in bowel habit; K64.0 First degree hemorrhoids; G47.30 Sleep apnea, unspecified; I10 Essential (primary) hypertension; E78.00 Pure hypercholesterolemia, unspecified; Z79.899 Other long term (current) drug therapy

== ENCOUNTER 2019-01-31 00:04 | Emergency (ER) | payer OTHER ==
[~2019-01-31] VITALS: Ht 193 cm; Wt 140.9 kg
[~2019-01-31 00:04] MED LIST changes: +INDO-16 PO; -INDO25CA PO
[2019-01-31 00:49] LABS: BASO # 0.1 10^3/uL (0.0-0.2); BASO % 0.8 % (0.0-1.0); EOS # 0.3 10^3/uL (0.0-0.50); EOS % 4.8 % (0.0-3.0); HEMATOCRIT 43.5 % (42.0-52.0); LYMPH # 2.7 10^3/uL (1.5-4.5); LYMPH % 40.2 % (24.0-44.0); MEAN CORPUSCULAR HEMOGLOBIN 30.4 pg (27.0-33.0); MEAN CORPUSCULAR HGB CONC 34.5 g/dl (32.0-36.5); MEAN CORPUSCULAR VOLUME 88.2 fl (80.0-96.0); MONO # 0.7 10^3/uL (0.0-0.8); NEUTROPHILS # 2.8 10^3/uL (1.8-7.7); NEUTROPHILS % 42.6 % (36.0-66.0); PLATELET COUNT, AUTOMATED 287 10^3/uL (150-450); RED BLOOD COUNT 4.93 10^6/uL (4.30-6.10); WHITE BLOOD COUNT 6.6 10^3/uL (4.0-10.0)
[2019-01-31 01:10] LABS: BLOOD UREA NITROGEN 11 MG/DL (7-18); CALCIUM LEVEL 9.6 MG/DL (8.5-10.1); CARBON DIOXIDE LEVEL 28 MEQ/L (21-32); CHLORIDE LEVEL 106 MEQ/L (98-107); CK-MB VALUE MASS < 1.0 NG/ML (<3.6); CPK CREATINE PHOSPHOKINASE 308 U/L (39-308); CREATININE FOR GFR 1.48 MG/DL (0.70-1.30); GLOMERULAR FILTRATION RATE > 60.0 (>60); GLUCOSE, FASTING 96 MG/DL (70-100); MB/CK RELATIVE INDEX 0.32 (< OR =4); SODIUM LEVEL 140 MEQ/L (136-145); TROPONIN I 0.04 NG/ML (< 0.10)
[2019-01-31] MEDS ORDERED: NS 1,000 ML IV ONE (01:30)
[2019-01-31] MEDS ORDERED: MORPHINE 2 MG/ML 1ML SYRINGE (J2270) IV ONE (01:30)
[2019-01-31] MEDS ORDERED: ISOVUE-370 76% 100ML VIAL (Q9967) As Ordered ONE (01:38)
--- NOTE | 2019-01-31 01:38 | REP ---
Clinical: Chest pain . Comparison: 07/18/2017 . Findings: The mediastinum and cardiac silhouette are stable and within normal limits for portable technique. The lung reddy are clear without acute consolidation, effusion, or pneumothorax. Skeletal structures are intact. Impression: No acute cardiopulmonary process appreciated. Electronically Signed by Jaime Saldaña MD 01/31/2019 01:30 A
--- NOTE | 2019-01-31 02:08 | REPVR ---
EXAM: CT Angiography Chest With Contrast EXAM DATE/TIME: 01/31/2019 1:26 AM CLINICAL HISTORY: 43 years old, male; Chest pain; Type not specified; Additional info: Cp TECHNIQUE: Imaging protocol: Axial computed tomographic angiography images of the chest with intravenous contrast using CT angiography protocol. Coronal and sagittal reformatted images were created and reviewed. 3D rendering: MIP reconstructed images were created and reviewed. Radiation optimization: All CT scans at this facility use at least one of these dose optimization techniques: automated exposure control; mA and/or kV adjustment per patient size (includes targeted exams where dose is matched to clinical indication); or iterative reconstruction. Contrast material: ISO;Contrast volume: 75 ml;Contrast route: AC; COMPARISON: CR PORTABLE CHEST X-RAY 01/31/2019 12:40 AM FINDINGS: Pulmonary arteries: No focal pulmonary artery filling defect to suggest acute pulmonary embolus. Aorta: No thoracic aortic aneurysm or dissection. Lungs: Pulmonary vascular/interstitial pattern does not suggest active pulmonary edema. Pulmonary vascular/interstitial pattern does not suggest active pulmonary edema. No suspicious lung mass or air space process. No central endobronchial lesion. Pleural space: No pleural effusion or pneumothorax. Heart: No evidence of pericardial effusion. Stomach and bowel: Stomach is distended with ingested material and fluid. Lymph nodes: No enlarged lymph nodes. Bones/joints: Bony structures show no acute fracture or destructive process. Soft tissues: Unremarkable. Other findings: Limited visualization of upper abdomen shows no concerning finding. IMPRESSION: 1. No evidence of acute pulmonary embolus. 2. No other acute or concerning focal intrathoracic abnormality. Electronically signed by: Jaylan Epps On 01/31/2019 02:08:04 AM
[2019-01-31 04:55] LABS: CK-MB VALUE MASS < 1.0 NG/ML (<3.6); CPK CREATINE PHOSPHOKINASE 268 U/L (39-308); MB/CK RELATIVE INDEX 0.37 (< OR =4); TROPONIN I 0.04 NG/ML (< 0.10)
[2019-01-31 05:16] VITALS: BP 150/86
[2019-01-31] MEDS ORDERED: KETO10TAB PO (05:16)
--- NOTE | 2019-01-31 05:52 | ECGEPIP ---
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
--- NOTE | 2019-01-31 21:39 | ECGEPIP ---
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
== END 2019-01-31 05:26 | disposition home or self-care (01) ==
LOC: M ED 00:04
DX: R07.89 Other chest pain (principal)
CPT/HCPCS: 71045; 71275; 80048; 82550; 82553; 84484; 85025; 93005; 93041; 94760; 96361; 96374; 99285; J2270; Q9967

== ENCOUNTER → 2019-04-03 | Outpatient (REF) | payer OTHER ==
[~2019-04-03] MED LIST changes: +KETO10TAB PO
[2019-04-05 14:07] LABS: Lyme Disease IgG/IgM Antibodie <0.91 ISR (0.00-0.90); Lyme Disease IgM Ab Quantitati <0.80 index (0.00-0.79)
== END ==
LOC: M LAB REF 17:12
PROVIDERS: ATTEND Physician Assistant
DX: M26.629 Arthralgia of temporomandibular joint, unspecified side (principal)

== ENCOUNTER → 2019-07-16 | Outpatient (REF) | payer OTHER ==
[~2019-07-16] MED LIST changes: -TRAZ10TA PO; +TRAZ1TAB12 PO; -VALA1TAB2; +VALA1TAB64
[2019-07-16 15:30] LABS: APPEARANCE, URINE CLEAR (CLEAR); BACTERIA, URINE AUTO NEGATIVE (NEGATIVE); BILIRUBIN, URINE AUTO NEGATIVE (NEGATIVE); BLOOD, URINE BLOOD 1+ (NEGATIVE); COLOR, URINE YELLOW (YELLOW); GLUCOSE, URINE (UA) AUTO NEGATIVE (NEGATIVE); KETONE, URINE AUTO NEGATIVE (NEGATIVE); LEUKOCYTE ESTERASE, URINE AUTO NEGATIVE (NEGATIVE); MUCUS, URINE SMALL (NEGATIVE); NITRITE, URINE AUTO NEGATIVE (NEGATIVE); PROTEIN, URINE AUTO NEGATIVE (NEGATIVE); RBC, URINE AUTO 3 /HPF (0-3); SPECIFIC GRAVITY URINE AUTO 1.023 (1.002-1.035); SQUAMOUS EPITHELIAL CELL UR AU 0 /HPF (0-6); WBC, URINE AUTO 1 /HPF (0-3)
[2019-07-16 16:15] LABS: INFLUENZA A AMPLIFICATION NEGATIVE (NEGATIVE); INFLUENZA B AMPLIFICATION NEGATIVE (NEGATIVE)
== END ==
LOC: M LAB REF 14:58
PROVIDERS: ATTEND Physician Assistant
DX: M79.10 Myalgia, unspecified site (principal); N39.0 Urinary tract infection, site not specified

== ENCOUNTER → 2020-05-15 | Outpatient (CLI) | payer OTHER ==
[~2020-05-15] MED LIST changes: -FLUO20CA19; -FLUO20CA19 PO; +FLUO20CA22; +FLUO20CA22 PO; +VALA1TAB5; -VALA1TAB64
--- NOTE | 2020-05-19 14:38 | ECHO ---
DATE OF PROCEDURE: 05/15/2020 Age: 45 Gender: Male REFERRING PROVIDER: Manuel Barroso MD REASON FOR STUDY: History of pulmonary embolism. 2D MEASUREMENTS: IVS 1.7 cm LV 5.7 cm LVPW 1.1 cm LA 3.8 cm Aorta 3.8 cm IVC 1.4 cm DOPPLER MEASUREMENT Peak velocity across the aortic valve 1.2 msec Peak velocity across the LVOT 0.7 msec Mitral E 0.7 Mitral A 0.5 with a ratio of greater than 1.0 Maximum tricuspid valve velocity 2.3 msec 2D COMMENTS: 1. Mildly enlarged left ventricle with normal left ventricular wall thickness. Left ventricular systolic function appeared to be at the lower limits of normal, estimated left ventricular ejection fraction (LVEF) of 50% to 55%. There was mild global hypokinesis. 2. Normal left atrium. The right atrium and the right ventricle appear to be normal in limited views. 3. Mildly dilated aortic root at 3.8 cm. 4. Trace pericardial effusion was noted, no evidence of cardiac tamponade. 5. The mitral valve, the aortic valve, as well as the tricuspid valve appear to be normal. The pulmonic valve and proximal pulmonary artery branches were not well visualized. 6. The inferior vena cava was normal size in size, central venous pressure is most likely normal. Doppler with no significant valvular abnormalities detected, but mild tricuspid regurgitation. The calculated pulmonary artery systolic pressure varies between 30 to 40 mmHg. Assessment of the left ventricular diastolic function appeared to be normal. IMPRESSION: 1. Low normal global left ventricular systolic function with a mildly enlarged left ventricle, but normal left ventricular wall thickness. 2. Mildly dilated aortic root at 3.8 cm. 3. Mild tricuspid regurgitation with mild pulmonary hypertension. 4. This study was compared to the most recent echocardiogram on 02/07/2017, and at that time, left ventricular systolic function was normal. 5. Trace pericardial effusion also was noted. [facility]
== END ==
LOC: M CARPUL 10:38
PROVIDERS: ATTEND Internal Medicine
DX: I74.9 Embolism and thrombosis of unspecified artery (principal)